=== PATIENT | male | born 1960 | race Caucasian/White ===

== ENCOUNTER 2024-09-28 16:01 | Emergency (ER) | payer MEDICAID ==
[~2024-09-28] VITALS: Ht 185.4 cm; Wt 72.4 kg
[2024-09-28] MEDS: ketorolac trometh 30MG/ML vial 30 MG/ML VIAL IM ONE (17:11)
[2024-09-28] MEDS: dexamethasone sod phosphate 10mg/ml inj IM STA (17:11)
[2024-09-28] MEDS ORDERED: CYCL-1 PO (17:12)
[2024-09-28] MEDS ORDERED: LIDO700A32 TOP (17:12)
[2024-09-28 17:18] VITALS: BP 134/68; PULSE 76; RESP 16; TEMP 98.1; O2SAT 98
[2024-09-29] MEDS ORDERED: LIDOcaine 5% patch TP SCH (08:00)
== END 2024-09-28 17:20 | disposition home or self-care (01) ==
LOC: ER 16:02
DX: S16.1XXA Strain of muscle, fascia and tendon at neck level, initial encounter (principal); F07.81 Postconcussional syndrome; R51.9 Headache, unspecified; V89.2XXA Person injured in unspecified motor-vehicle accident, traffic, initial encounter; Y93.89 Activity, other specified; Y92.89 Other specified places as the place of occurrence of the external cause; Y99.8 Other external cause status
CPT/HCPCS: 72040; 96372; 99284; J1100; J1885